=== PATIENT | male | born 1975 | race Caucasian/White ===

== ENCOUNTER 2023-10-28 08:59 | Outpatient (AMB) | payer OTHER, SELFPAY ==
--- NOTE | 2023-10-28 09:08 | MHC.PC.OV ---
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 Required: No Accompanied by: Self / Same As Patient Allergies shellfish derived Allergy (Severe, Verified 10/28/23 09:18) hives, throat swelling, trouble breathing Medication List - Last Reconciled 10/28/23 by Alexus Hardy MD rosuvastatin 10 mg PO DAILY Tobacco use date assessed: 10/28/23 Dental Screening Dental Screen Date: 10/28/23 Did you have a dental visit in the last 12 months?: Yes Did you have a dental problem in the last 6 months where you did not have access to dental care?: No Was dental information given to patient?: Patient has dentist HPI HPI Comments History of Present Illness Details This is a 48-year-old male that comes here for physical exam. Has never had a colonoscopy. No acute complaints. [facility] Surgical History History of oral surgery Family History (Updated 10/28/23 @ 09:23 by Alexus Hardy MD) Mother Hypertension Father Substance use disorder Social History Housing: Apartment Alcohol intake: current Alcohol intake frequency: holidays/special occasions only Alcohol type: beer, wine and hard liquor Patient Tobacco Use Status: Never used Tobacco e-Cigarette/Vaping Use: Never Used Second Hand Smoke Exposure: No service: No Current occupational status: employed Current occupational exposures/hazards: No Cognitive needs: No Hearing needs: No Vision needs: Yes Questionnaire PHQ-9 Over the last 2 weeks, how often have you been bothered by any of the following problems? 1. Little interest or pleasure in doing things: not at all 2. Feeling down, depressed, or hopeless: not at all 3. Trouble falling or staying asleep, or sleeping too much: not at all 4. Feeling tired or having little energy: not at all 5. Poor appetite or overeating: not at all 6. Feeling bad about yourself - or that you are a failure or have let yourself or your family down: not at all 7. Trouble concentrating on things, such as reading the newspaper or watching television: not at all 8. Moving or speaking so slowly that other people could have noticed. Or the opposite - being so fidgety or restless that you have been moving around a lot more than usual: not at all 9. Thoughts that you would be better off or of hurting yourself in some way: not at all Total score: 0 Depression Screening Interpretation: Negative Depression Screening Done: Yes 74133 - PHQ-9 Billing: Yes Source: Developed by Drs. Hay Gomez, Bonnie Parekh, Danny Cobb and colleagues, with an educational laisha from [employer]. Thrive Questionnaire Date Thrive assessed: 10/28/23 I am a: Patient What is your living situation today?: I have a steady place to live Within the past 12 months, did the food you bought not last and you didn't have the money to get more?: Never true Within the past 12 months, did you worry whether your food would run out before you got money to buy more?: Never true Do you have trouble paying for medicines?: No Do you have trouble getting transportation to medical appointments?: No Do you have trouble paying your heating and electricity bill?: No Do you have trouble taking care of your child, family member or friend?: No Do you have trouble with day-to-day activities such as bathing, preparing meals, shopping, managing finances, etc.?: No Are you currently unemployed and looking for a job?: No Are you interested in more education?: No Please select the resources that you would like help with: None Currently or been in a relationship where the following occur: no concerns reported THRIVE Score: 0 AUDIT C Alcohol Use Questionnaire (AUDIT-C) 1. How often do you have a drink containing alcohol?: Monthly or less 2. How many drinks containing alcohol do you have on a typical day when you are drinking?: 1 or 2 3. How often do you have six or more drinks on one occasion?: Never Total Score: 1 Score Reviewed/Action Taken: No INGE-7 AMB Questionnaire INGE-7 Date INGE - 7 assessed: 10/28/23 Feeling nervous, anxious, or on edge: 0 = Not at all Not being able to stop or control worryin = Not at all Worrying too much about different things: 0 = Not at all Trouble relaxin = Not at all Being so restless that it is hard to sit still: 0 = Not at all Becoming easily annoyed or irritable: 0 = Not at all Feeling afraid as if something awful might happen: 0 = Not at all Total INGE-7 score (0-4 normal; 5-9 mild; 10-14 moderate; 15-21 severe): 0 Source: Developed by Drs. Hay Gomez, Bonnie Parekh, Danny Cobb and colleagues, with an educational laisha from [employer]. INGE-7 Assessment Billing INGE-7 Assessment Tool: INGE-7 Assessment 94745 Review of Systems Const All systems reviewed & are unremarkable except as noted in HPI and below Card Denies chest pain at rest, Denies chest pain with activity, Denies edema, Denies irregular heart rhythm, Denies claudication, Denies dyspnea, Denies dyspnea on exertion, Denies orthopnea, Denies paroxysmal nocturnal dyspnea and Denies slow heart rate Resp Denies cough, Denies dyspnea and Denies dyspnea on exertion GI Denies abdominal pain, Denies change in bowel habits, Denies excessive flatus, Denies nausea and Denies vomiting Denies urinary hesitancy, Denies urinary incontinence and Denies urinary urgency Musc Denies abnormal gait, Denies atrophy, Denies deformity and Denies limited range of motion Skin/Breast Denies bleeding lesions, Denies changing lesions and Denies rash Neuro Denies abnormal gait, Denies behavioral changes, Denies confusion and Denies lack of coordination Psych Denies behavioral changes and Denies confusion Physical exam (Primary Care) Vital Signs: Last Vital Signs BP 128/80 10/28/23 09:10 BMI result Body Mass Index 24.1 Tobacco/Smoking Status: Tobacco use Status Patient Tobacco Use Status Never used Tobacco 10/28/23 09:16 e-Cigarette/Vaping Use Never Used 10/28/23 09:16 PHQ-9: PHQ-9 Score PHQ-9: Total score 0 10/28/23 09:10 Depression Screening Interpretation: Negative Thrive Assessment: Date of Thrive Assessment Date Thrive assessed 10/28/23 10/28/23 09:10 Currently or been in a relationship where the following occur: no concerns reported Const General: No confusion Orientation/consciousness: patient oriented x3 and No confusion HENMT Head: Yes normal to inspection, Yes normocephalic and Yes atraumatic Ears: external ears normal Eyes General: appearance normal, both eyes and all related structures Eyelids: Yes eyelids normal Conjunctivae: conjunctivae normal Neck Neck: Yes normal visual inspection and Yes supple Resp Effort & Inspection: normal respiratory effort Auscultation: clear to auscultation bilaterally Cardio Jugular venous distension: no JVD Rate: regular rate Rhythm: regular rhythm Heart sounds: S1 normal heart sound present and S2 normal heart sound present GI Inspection: Yes normal to inspection Palpation (GI): Soft to palpation and nontender Auscultation: normal bowel sounds Skin General skin exam: no rashes or lesions noted Neuro General: patient oriented x3, no focal motor deficits and No confusion Extrem General: Yes full ROM Psych Appearance: grossly normal Assessment and Plan Assessment & Plan (1) Physical exam: Code(s): Z00.00 - Encounter for general adult medical examination without abnormal findings Plan: Repeat in a year. Orders: Orders Lipid Panel Today E78.5 - Hyperlipidemia, unspecified, Z00.00 - Encounter for general adult medical examination without abnormal findings Comprehensive [place]. Panel Fast Today Z00.00 - Encounter for general adult medical examination without abnormal findings HIV Ab/Ag Today Z11.4 - Encounter for screening for human immunodeficiency virus [HIV] Referrals Open Access Screening Colonoscopy Referral Z12.11 - Encounter for screening for malignant neoplasm of colon Coding Level of Care Code Est Pt Prev Care 40-64y(27741) Diagnoses Physical exam Z00.00 Additional Codes INGE-7 Assessment Billing - INGE-7 Assessment Tool: INGE-7 Assessment 11707 ([id number]) Time Spent (min) 30
[2023-10-28 09:10] VITALS: BP 128/80; BMI 24.1
== END 2023-10-28 09:36 | disposition home or self-care (01) ==
PROVIDERS: PCP Internal Medicine; Visit Provider Internal Medicine
DX: Z00.00 Encounter for general adult medical examination without abnormal findings (principal)
CPT/HCPCS: 99396

== ENCOUNTER 2023-10-28 09:45 | Outpatient (REF) | payer OTHER, SELFPAY ==
[2023-10-28 11:45] LABS: Alanine Aminotransferase 20 U/L (0-40); Albumin Level 4.5 g/dL (3.5-5.0); Alkaline Phosphatase 73 U/L (39-117); Anion Gap 13 (12-20); Aspartate Amino Transferase 20 U/L (5-37); Bilirubin Total 0.4 mg/dL (0.0-1.0); Blood Urea Nitrogen 13 mg/dL (9-16); Calcium 9.5 mg/dL (8.4-10.2); Carbon Dioxide 29 mmol/L (22-29); Chloride 107 mmol/L (96-108); Cholesterol 161 mg/dL (<200); Estimated Glomerular Filt Rate > 60; Glucose Fasting 108 mg/dL (60-99); HDL Cholesterol 51 mg/dL (>40); LDL Cholesterol Calculated 91 mg/dL (<100); Sodium 144 mmol/L (135-145); Total Protein 7.8 g/dL (6.5-8.0); Triglycerides 96 mg/dL (<150)
[2023-10-28 11:57] LABS: HIV AB/AG Nonreactive (Nonreactive); HIV Num 1 0.05 S/CO (0.00-0.99)
== END 2023-10-28 09:46 | disposition home or self-care (01) ==
LOC: HO.LAB 09:45
PROVIDERS: PCP Internal Medicine; Visit Provider Internal Medicine
DX: Z00.00 Encounter for general adult medical examination without abnormal findings (principal); Z11.4 Encounter for screening for human immunodeficiency virus [HIV]; E78.5 Hyperlipidemia, unspecified
CPT/HCPCS: 36415; 80053; 80061; 87389

== ENCOUNTER 2024-11-16 08:58 | Outpatient (REF) | payer OTHER, SELFPAY ==
[2024-11-16 11:38] LABS: Alanine Aminotransferase 20 U/L (0-40); Albumin Level 4.6 g/dL (3.5-5.0); Alkaline Phosphatase 76 U/L (39-117); Anion Gap 10 (12-20); Aspartate Amino Transferase 22 U/L (5-37); Blood Urea Nitrogen 19 mg/dL (9-16); Calcium 9.8 mg/dL (8.4-10.2); Carbon Dioxide 30 mmol/L (22-29); Chloride 106 mmol/L (96-108); Cholesterol 253 mg/dL (<200); Estimated Glomerular Filt Rate > 60; HDL Cholesterol 59 mg/dL (>40); Potassium 5.0 mmol/L (3.3-5.1); Sodium 141 mmol/L (135-145); Total Protein 7.6 g/dL (6.5-8.0); Triglycerides 74 mg/dL (<150)
== END 2024-11-16 08:59 | disposition home or self-care (01) ==
LOC: HO.LAB 08:58
PROVIDERS: PCP Internal Medicine; Visit Provider Internal Medicine
DX: Z00.00 Encounter for general adult medical examination without abnormal findings (principal); E78.5 Hyperlipidemia, unspecified; Z13.31 Encounter for screening for depression; Z13.39 Encounter for screening examination for other mental health and behavioral disorders
CPT/HCPCS: 36415; 80053; 80061; 96127

== ENCOUNTER 2024-11-16 08:58 | Outpatient (AMB) | payer OTHER, SELFPAY ==
[2024-11-16 09:13] VITALS: BP 132/80; BMI 21.5
--- NOTE | 2024-11-16 09:13 | MHC.PC.OV ---
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 Hand Required: No Accompanied by: Self / Same As Patient Allergies shellfish derived Allergy (Severe, Verified 11/16/24 09:19) hives, throat swelling, trouble breathing Medication List - Last Reconciled 11/16/24 by Alexus Hardy MD epinephrine (EpiPen 2-Nicholas) 0.3 mg (0.3 mL) IM Q4H PRN 30 days rosuvastatin 10 mg PO DAILY Tobacco use date assessed: 11/16/24 Dental Screening Dental Screen Date: 11/16/24 Did you have a dental visit in the last 12 months?: Yes Did you have a dental problem in the last 6 months where you did not have access to dental care?: No Was dental information given to patient?: Patient has dentist HPI HPI Comments History of Present Illness Details The patient is a 49-year-old male presenting for a wellness visit and preventative care. Declines Td vaccine. The patient has a known shellfish allergy and carries an Epipen for emergencies. He was previously prescribed rosuvastatin 10 mg for hyperlipidemia but is no longer taking it. The patient has a history of elevated blood glucose levels, with a previous reading of 108 mg/dL, indicating prediabetes. He is concerned about his cholesterol levels and wishes to have them rechecked. Family history includes maternal hypertension and paternal alcoholism. The patient does not smoke and consumes alcohol occasionally, less frequently than before. The patient underwent oral surgery involving bone grafting due to a fracture. [facility] Surgical History History of oral surgery Family History Mother Hypertension Father Substance use disorder Social History Housing: Apartment Alcohol intake: current Alcohol intake frequency: holidays/special occasions only Alcohol type: beer, wine and hard liquor Patient Tobacco Use Status: Never used Tobacco e-Cigarette/Vaping Use: Never Used Second Hand Smoke Exposure: No service: No Current occupational status: employed Current occupational exposures/hazards: No Cognitive needs: No Hearing needs: No Vision needs: Yes Questionnaire PHQ-9 Over the last 2 weeks, how often have you been bothered by any of the following problems? 1. Little interest or pleasure in doing things: not at all 2. Feeling down, depressed, or hopeless: not at all 3. Trouble falling or staying asleep, or sleeping too much: not at all 4. Feeling tired or having little energy: not at all 5. Poor appetite or overeating: not at all 6. Feeling bad about yourself - or that you are a failure or have let yourself or your family down: not at all 7. Trouble concentrating on things, such as reading the newspaper or watching television: not at all 8. Moving or speaking so slowly that other people could have noticed. Or the opposite - being so fidgety or restless that you have been moving around a lot more than usual: not at all 9. Thoughts that you would be better off or of hurting yourself in some way: not at all Total score: 0 Depression Screening Interpretation: Negative Depression Screening Done: Yes 91196 - PHQ-9 Billing: Yes Source: Developed by Drs. Hay Gomez, Bonnie Parekh, Danny Cobb and colleagues, with an educational laisha from [employer]. Thrive Questionnaire Date Thrive assessed: 11/14/24 I am a: Patient What is your living situation today?: I have a steady place to live Within the past 12 months, did the food you bought not last and you didn't have the money to get more?: Never true Within the past 12 months, did you worry whether your food would run out before you got money to buy more?: Never true Do you have trouble paying for medicines?: No Do you have trouble getting transportation to medical appointments?: No Do you have trouble paying your heating and electricity bill?: No Do you have trouble taking care of your child, family member or friend?: No Do you have trouble with day-to-day activities such as bathing, preparing meals, shopping, managing finances, etc.?: No Are you currently unemployed and looking for a job?: No Are you interested in more education?: No Please select the resources that you would like help with: None Currently or been in a relationship where the following occur: No concerns reported THRIVE Score: 0 AUDIT C Alcohol Use Questionnaire (AUDIT-C) 1. How often do you have a drink containing alcohol?: Monthly or less 2. How many drinks containing alcohol do you have on a typical day when you are drinking?: 1 or 2 3. How often do you have six or more drinks on one occasion?: Never Total Score: 1 Score Reviewed/Action Taken: No INGE-7 AMB Questionnaire INGE-7 Date INGE - 7 assessed: 11/16/24 Feeling nervous, anxious, or on edge: 0 = Not at all Not being able to stop or control worryin = Not at all Worrying too much about different things: 0 = Not at all Trouble relaxin = Not at all Being so restless that it is hard to sit still: 0 = Not at all Becoming easily annoyed or irritable: 0 = Not at all Feeling afraid as if something awful might happen: 0 = Not at all Total INGE-7 score (0-4 normal; 5-9 mild; 10-14 moderate; 15-21 severe): 0 Source: Developed by Drs. Hay Gomez, Bonnie Parekh, Danny Cobb and colleagues, with an educational laisha from [employer]. INGE-7 Assessment Billing INGE-7 Assessment Tool: INGE-7 Assessment 59593 Review of Systems Const All systems reviewed & are unremarkable except as noted in HPI and below Card Denies chest pain at rest, Denies chest pain with activity, Denies edema, Denies irregular heart rhythm, Denies claudication, Denies dyspnea, Denies dyspnea on exertion, Denies orthopnea, Denies paroxysmal nocturnal dyspnea and Denies slow heart rate Resp Denies cough, Denies dyspnea and Denies dyspnea on exertion GI Denies abdominal pain, Denies change in bowel habits, Denies excessive flatus, Denies nausea and Denies vomiting Denies urinary hesitancy, Denies urinary incontinence and Denies urinary urgency Musc Denies abnormal gait, Denies atrophy, Denies deformity and Denies limited range of motion Skin/Breast Denies bleeding lesions, Denies changing lesions and Denies rash Neuro Denies abnormal gait, Denies behavioral changes and Denies lack of coordination Psych Denies behavioral changes Physical exam (Primary Care) Vital Signs: Last Vital Signs BP 132/80 11/16/24 09:13 BMI result Body Mass Index 21.5 Tobacco/Smoking Status: Tobacco use Status Tobacco use date assessed 11/16/24 11/16/24 09:17 Patient Tobacco Use Status Never used Tobacco 11/16/24 09:17 e-Cigarette/Vaping Use Never Used 11/16/24 09:17 PHQ-9: PHQ-9 Score PHQ-9: Total score 0 11/16/24 09:17 Depression Screening Interpretation: Negative Thrive Assessment: Date of Thrive Assessment Date Thrive assessed 11/14/24 11/16/24 09:17 Currently or been in a relationship where the following occur: No concerns reported HENMT Head: Yes normal to inspection, Yes normocephalic and Yes atraumatic Ears: external ears normal Eyes General: appearance normal, both eyes and all related structures Eyelids: Yes eyelids normal Conjunctivae: conjunctivae normal Neck Neck: Yes normal visual inspection and Yes supple Resp Effort & Inspection: normal respiratory effort Auscultation: clear to auscultation bilaterally Cardio Jugular venous distension: no JVD Rate: regular rate Rhythm: regular rhythm Heart sounds: S1 normal heart sound present and S2 normal heart sound present GI Inspection: Yes normal to inspection Palpation (GI): Soft to palpation and nontender Auscultation: normal bowel sounds Skin General skin exam: no rashes or lesions noted Neuro General: no focal motor deficits Extrem General: Yes full ROM Psych Appearance: grossly normal Coding Level of Care Code Est Pt Prev Care 40-64y(52181) Diagnoses Physical exam Z00.00 Additional Codes PHQ-9 - 80199 - PHQ-9 Billing: Yes ([id number]) INGE-7 Assessment Billing - INGE-7 Assessment Tool: INGE-7 Assessment 63830 ([id number]) Time Spent (min) 30 Assessment & Plan Assessment & Plan (1) Physical exam: Code(s): Z00.00 - Encounter for general adult medical examination without abnormal findings Category: Medical Plan The patient will undergo colonoscopy instead of cologuard. Blood tests will be conducted to evaluate cholesterol levels, glucose, and assess renal and liver function. The patient is advised to monitor his diet and exercise to manage his prediabetes and hyperlipidemia. He is encouraged to continue avoiding smoking and to limit alcohol consumption to special occasions. Patient was informed and verbally consented to the use of an ambient scribe for clinic note documentation during this visit. Orders: Orders Lipid Panel Today E78.5 - Hyperlipidemia, unspecified Comprehensive [place]. Panel Fast Today Z00.00 - Encounter for general adult medical examination without abnormal findings Referrals Open Access Screening Colonoscopy Referral Z12.12 - Encounter for screening for malignant neoplasm of rectum
--- OUTSIDE RECORDS SUMMARY | 2024-11-16 09:20 | XMS_ITS | Clinical Summary ---
Author Organization [facility] Address [address] [place] [address] Care Team Providers Care Data Center Engineer Name Role Phone Marivel Paulino CHLORINATOR OPERATOR Primary Care Provider [phone] Allergies Active Allergy Reactions Criticality Noted Date Comments Shellfish Derived 08/20/2020 Medications EPINEPHrine (EPIPEN) 0.3 mg/0.3 mL injection syringeIndicatio ns:Food allergy Inject 0.3 mL (0.3 mg total) inject into thigh 1 (one) time for 1 dose 0.3 mL 1 09/09/2022 Active rosuvastatin (CRESTOR) 10 mg tabletIndication s:Dyslipidemia TAKE 1 TABLET BY MOUTH 1 TIME EACH DAY. 90 tablet 3 12/07/2022 Active Active Problems Problem Noted Date Diagnosed Date Acute pain of right shoulder 09/30/2022 Impaired fasting glucose 09/10/2022 Dyslipidemia 09/09/2022 Immunizations Immunization Administration Dates Next Due Influenza, trivalent (IIV3), split virus (single-dose) PF 03/04/2020 Tdap 06/09/2017 Family History Medical History Relation Comments Alcohol abuse Father Diabetes Maternal Grandmother Hypertension Mother Kidney failure Mother Cancer Other Cancer Sister Relation Status Comments Brother Alive Father Maternal Grandmother Mother Other Alive Sister Alive Social History Tobacco Use Types Packs/Day Years Used Date Smoking Tobacco: Never Smokeless Tobacco: Never Tobacco Cessation:Counseling Given: Not Answered Alcohol Use Standard Drinks/Week Comments Never 0 (1 standard drink = 0.6 oz pur e alcohol) Humiliation, Afraid, Rape, and Kick questionnair e Answer Date Recorded Within the last year, have y ou been afraid of your partner or ex-partner? No 08/20/2020 Within the last year, have y ou been humiliated or emotionally abused in other ways by your partner or ex-partner? No Within the last year, have y ou been kicked, hit, slapped, or otherwise physically hurt by your partner or ex-partner? No 08/20/2020 Within the last year, have y ou been raped or forced to have any kind of sexual activity by your partner or ex-partner? No 08/20/2020 Social Connection and Isolation Panel [NHANES] A nswer Date Recorded In a typical week, how many times do you talk on the phone with family, friends, or neighbors? Patient declined 08/20/2020 How often do you get togethe r with friends or relatives? Patient declined 08/20/2020 How often do you attend yazidism or christian serv ices? Patient declined 08/20/2020 Do you belong to any clubs o r organizations such as yazidism groups, unions, fraternal or athletic groups, or school groups? Patient declined 08/20/2020 How often do you attend meet ings of the clubs or organizations you belong to? Patient declined 08/20/2020 Are you , , di vorced, , never , or living with a partner? Patient declined 08/20/2020 AUDIT-C Answer Date Recorded Q1: How often do you have a drink containing alc ohol? Never 08/20/2020 Average Number of Drinks Not on file 021 Frequency of Binge Drinking Not on file 08/08 PHQ-2 Answer Date Recorded Depression Risk (PHQ2) Score 0 07/2022 [facility]ational Stress Questionnaire Answer Date Recorded Do you feel stress - tense, restless, nervous, or anxious, or unable to sleep at night because your mind is troubled all the time - these days? Only a little 08/20/2020 Exercise Vital Sign Answer Date Recorde d On average, how many days pe r week do you engage in moderate to strenuous exercise (like a brisk walk)? 4 days 08/20/2020 On average, how many minutes do you engage in exercise at this level? 30 min 08/20/2020 Hunger Vital Sign Answer Date Recorded Within the past 12 months, y ou worried that your food would run out before you got the money to buy more. Never true 08/21/19 21 Within the past 12 months, t he food you bought just didn't last and you didn't have money to get more. Never true 08/20/2020 PRAPARE - Transportation Answer Date Re corded In the past 12 months, has l ack of transportation kept you from medical appointments or from getting medications? No 08/08 In the past 12 months, has l ack of transportation kept you from meetings, work, or from getting things needed for daily living? No 08/20/2020 Sex and Gender Information Value Date Recorded Sex Assigned at Not on file Legal Sex Male 6:55 AM MST Gender Identity Not on file Sexual Orientation Not on file Occupation Industry Job Start Date Job End Date Not on file Not on file Not on file Not on file Last Filed Vital Signs Vital Sign Reading Time Taken Comments Blood Pressure 120/72 11/20/2022 1:50 PM EDT Pulse 75 11/20/2022 1:41 PM EDT Temperature 36.7 C (98 F) 11/20/2022 1:41 PM EDT Respiratory Rate 16 08/20/2020 9:03 AM EDT Oxygen Saturation 97% 11/20/2022 1:41 PM EDT Inhaled Oxygen Concentration - - Weight 79.1 kg (174 lb 6.4 oz) 11/20/2022 1:41 P M EDT Height 178.5 cm (5' 10.28 ) 06/17/2020 2:[address] Body Mass Index 24.83 06/17/2020 2:34 PM EST Plan of Treatment Health Maintenance Due Date Last Done Comments CT Colonography 1974 Cologuard 1974 Colonoscopy 1974 Colorectal Cancer Screening 1974 FOBT/FIT 1974 Hepatitis C Screening 1974 Sigmoidoscopy 1974 PHQ-9 Depression Screen 1986 INGE-7 Anxiety Screen 01/21/1992 Annual Preventive Exam 09/10/2023 3, 08/20/2020, 02/13/2019 COVID-19 Vaccine (2023- season) 2024, 09/10/2020 Pneumococcal Vaccine: 50+ Ye ars (1 of 1 - PCV) 01/21/2024 Zoster Vaccines (1 of 2) 01/21/2024 Influenza Vaccine (#1) 2025 03/04/2020 DTaP,Tdap,and Td Vaccines (2 - Td or Tdap) 06/09/2027 06/09/2017 RSV Vaccine (SCDM) (1 - 1-do se 75+ series) 2049 Insurance [employer] Care Teams Data Center Engineer Relationship Specialty Start Date End Date Marivel Paulino NP [address] [place] [id number] PCP - General Family Medicine 09/09/22
--- OUTSIDE RECORDS SUMMARY | 2024-11-16 09:20 | XMS_ITS | Clinical Summary ---
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 Unavailable Primary Care Provider Unavailabl e Source Comments PLEASE NOTE, if this patient is a minor, it may be UNLAWFUL to discuss sensitive information that is contained in these records (such as FAMILY PLANNING, MENTAL HEALTH or SUBSTANCE ABUSE) with the minor patient's parent or other person without the patient's specific authorization.[facility] Immunizations Immunization Administration Dates Next Due PFIZER COVID VACCINE, PURPLE CAP, 12+ 10/01/2020 ,09/10/2020 Social History Tobacco Use Types Packs/Day Years Used Date Smoking Tobacco: Never Assessed Social Connections Answer Date Recorded Connectedness 0 2024 Financial Resource Strain Answer Date R ecorded Financial Resource Strain 0 2023 Stress Answer Date Recorded Stress 0 10/10/2023 Physical Activity Answer Date Recorded Physical Activity 0 10/10/2023 Food Insecurity Answer Date Recorded Food 0 02/03/2024 Transportation Needs Answer Date Record ed Transportation 0 10/10/2023 Housing Stability Answer Date Recorded Housing 0 10/10/2023 Safety and Environment Answer Date Hebert rded Safety 0 10/10/2023 Utilities Answer Date Recorded Utilities 0 10/10/2023 Employment Answer Date Recorded Stress 0 2024 Sex and Gender Information Value Date Recorded Sex Assigned at Not on file Legal Sex Male 9:59 AM PDT Gender Identity Not on file Sexual Orientation Not on file Plan of Treatment Health Maintenance Due Date Last Done Comments Anxiety Screening 1974 Hepatitis C Screening 1974 Tobacco Screening 1974 HIV Screening 1989 Hypertension Screening (#1) 01/21/1992 Imm-DTaP/Tdap/Td (1 - Tdap) 1993 Imm-Hepatitis B (1 of 3 - 19 + 3-dose series) 1993 CT Colonography 2019 Colonoscopy 2019 Colorectal Cancer Screening 2019 FIT/gFOBT 2019 Fecal DNA 2019 Flexible Sigmoidoscopy 2019 Diabetes Screening 08/21/2023 08/20/2020 Het-[id number]-33 ( - season) 2024 021, 09/10/2020 Imm-Pneumococcal 50+ (1 of 1 - PCV) 01/21/2024 Imm-Zoster, Recombinant (1 of 2) 01/21/2024 Alcohol and Drug Screen 05/10/2024 Depression Annual Screen 05/10/2024 Imm-Influenza (#1) 2025 Lipid Screening 08/20/2025 08/20/2020 Insurance [employer]
--- OUTSIDE RECORDS SUMMARY | 2024-11-16 09:20 | XMS_ITS | Clinical Summary ---
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 Phone Unavailable Primary Care Provider Unavailabl e Allergies Active Allergy Reactions Criticality Noted Date Comments Shellfish Allergy Maculopapular Rash 08/20/2020 Rash and SOB Medications No known medications Active Problems No known active problems Immunizations Immunization Administration Dates Next Due COVID-19, mRNA (Pfizer Pre F all 2022) Monovalent, 30 mcg/0.3 ml 10/01/2020,09/10/2020 Social History Tobacco Use Types Packs/Day Years Used Date Smoking Tobacco: Never Assessed Sex and Gender Information Value Date Recorded Sex Assigned at Not on file Legal Sex Male 1:07 PM EDT Gender Identity Not on file Sexual Orientation Not on file Plan of Treatment Health Maintenance Due Date Last Done Comments Hepatitis C Screening 1974 DTaP/Tdap/Td (1 - Tdap) 01/21/1992 Hep B (1 of 3 - 19+ 3-dose series) 1993 COVID-19 Vaccine (2023-2 5 season) 2024 10/01/2020, 09/10/2020 Pneumococcal 50+ years (1 of 1 - PCV) 01/21/2024 Zoster (Shingrix) (1 of 2) 01/21/2024 Influenza (#1) 2025 03/04/2020 HPV Vaccine Aged Out No longer eligi ble based on patient's age to complete this topic Hep A Aged Out No longer eligi ble based on patient's age to complete this topic Hib Aged Out No longer eligi ble based on patient's age to complete this topic Meningococcal ACWY Aged Out No longer eligible based on patient's age to complete this topic Insurance [employer]
== END 2024-11-16 09:30 | disposition home or self-care (01) ==
LOC: HO.HMCH 08:59
PROVIDERS: PCP Internal Medicine; Visit Provider Internal Medicine
DX: Z00.00 Encounter for general adult medical examination without abnormal findings (principal)